=== PATIENT | female | born 1950 | race Caucasian/White ===

== ENCOUNTER 2017-07-13 11:51 | Emergency (ER) | payer OTHER ==
[~2017-07-13] VITALS: Ht 160 cm; Wt 70.3 kg
[~2017-07-13 11:51] MED LIST: ABAC300; ALBU90OI INH; ALBU90OI6 INH; AMLO5 PO; ASPI81CH PO; ATOR10; BUDE10.22 IH; BUDE6HFA; CARV25 PO; CARV3.125 PO; CETI10; CODACE30 PO; CODGUAEL PO; CYCL10 PO; DEXT30SU PO; DOC250 PO; FAMO20 PO; FAMO40 PO; FENO145 PO; FENOFIBRATE145 MG PO; Fludrocortison0.1 MG PO; HYDACE5325 PO; Hydrocortisone5 MG PO; IBUP800 PO; Iron Supplemen325 MG PO; LOSARTAN POTASS50 MG PO; MONT10T; MONT10T PO; NIAC500ER PO; Neurontin 100100 MG GT; OLME20 PO; OMEP20ER PO; PRED20 PO; PROACE100 PO; Prilosec20 MG PO; RXCODACET PO; TRAM50 PO; [UNRECOGNIZED DRUG - OTHER]
[2017-07-13 13:21] LABS: Alanine Aminotransfer (ALT/SGP 16 U/L (12-78); Albumin, Blood 3.3 g/dL (3.4-5.0); Albumin/Globulin Ratio 0.9 (0.8-1.8); Alk Phos 51 U/L (50-136); Anion Gap 10 mmol/L (6-16); Aspartate Aminotrans (AST/SGOT 28 U/L (12-37); Bilirubin, Total 0.4 mg/dL (0.1-1.0); Blood Urea Nitrogen 10 mg/dL (8-24); Bun/Creatinine Ratio 10.9 (12.0-20.0); CO2, Blood 20 mmol/L (21-32); Calcium, Blood 8.1 mg/dL (8.5-10.1); Chloride, Blood 97 mmol/L (98-108); Creatinine, Blood 0.92 mg/dL (0.40-1.00); Globulin, Blood 3.5 g/dL (2.2-4.0); Glomerular Filtration Rate >60 (60-); Glucose, Blood 95 mg/dL (70-99); Potassium, Blood 4.8 mmol/L (3.5-5.5); Sodium, Blood 127 mmol/L (136-145); Total Protein, Blood 6.8 g/dL (6.4-8.2); Troponin I <0.015 ng/mL (0.000-0.040)
[2017-07-13 13:22] LABS: BASOPHILS ABSOLUTE AUTO 0.03 K/mm3 (0.00-0.23); BASOPHILS PERCENT AUTO 0 % (0-2); EOSINOPHILS ABSOLUTE AUTO 0.18 K/mm3 (0.00-0.68); EOSINOPHILS PERCENT AUTO 2 % (0-6); Hematocrit 29.6 % (33.0-51.0); IMMATURE GRAN ABSOLUTE AUTO 0.05 K/mm3 (0.00-0.10); IMMATURE GRAN PERCENT AUTO 0 % (0-1); LYMPHOCYTES ABSOLUTE AUTO 1.74 K/mm3 (0.84-5.20); LYMPHOCYTES PERCENT AUTO 16 % (21-46); MONOCYTES ABSOLUTE AUTO 0.93 K/mm3 (0.16-1.47); MONOCYTES PERCENT AUTO 8 % (4-13); Mean Corpuscular HGB 31.7 pg (26.0-34.0); Mean Corpuscular HGB Conc 33.8 g/dL (31.5-36.5); Mean Corpuscular Volume 94 fL (80-100); NEUTROPHILS ABSOLUTE AUTO 8.26 K/mm3 (1.96-9.15); NEUTROPHILS PERCENT AUTO 74 % (41-73); RDW Coefficient Variation 12.8 % (11.7-14.2); RDW Standard Deviation 43.9 fL (35.1-46.3); Red Blood Cell Count 3.15 M/mm3 (3.80-5.20); White Blood Cell Count 11.19 K/mm3 (4.00-11.30)
[2017-07-13 13:25] LABS: Mean Platelet Volume 9.6 fL (9.1-12.4); Platelet Count 353 K/mm3 (150-400)
[2017-07-13 13:49] LABS: Uric Acid, Blood 2.7 mg/dL (2.6-6.0)
[2017-07-13 14:49] LABS: Source, Urine Clean Catch
[2017-07-13 14:53] LABS: Appearance, Urine Clear (Clear); Bilirubin, Urine Neg (Neg); Blood, Urine Neg (Neg); Color, Urine Yellow (P-Yellow); Glucose Qualitative, Urine Neg (Neg); Ketones, Urine Neg (Neg); Leukocyte Esterase, Urine Neg (Neg); Nitrite, Urine Neg (Neg); Protein, Urine Neg (Neg); Specific Gravity, Urine 1.005 (1.003-1.022); Urobilinogen, Urine NORM (Normal)
== END 2017-07-13 15:27 | disposition home or self-care (01) ==
LOC: ER 11:51
PROVIDERS: Internal Medicine
DX: E87.1 Hypo-osmolality and hyponatremia (principal); E86.0 Dehydration; R55 Syncope and collapse; J45.909 Unspecified asthma, uncomplicated; I10 Essential (primary) hypertension; F17.200 Nicotine dependence, unspecified, uncomplicated; Z91.013 Allergy to seafood; Z91.030 Bee allergy status; Z88.5 Allergy status to narcotic agent; Z88.2 Allergy status to sulfonamides; Z88.8 Allergy status to other drugs, medicaments and biological substances; Z79.899 Other long term (current) drug therapy; Z79.82 Long term (current) use of aspirin
CPT/HCPCS: 80053; 81003; 83880; 84484; 84550; 85025; 93005; 93010; 99283

== ENCOUNTER → 2018-08-08 | Outpatient (CLI) | payer OTHER | END | disposition home or self-care (01) | LOC: LAB 19:05 → LAB SHORT 19:05 | DX: K52.9 Noninfective gastroenteritis and colitis, unspecified (principal) | CPT/HCPCS: 87015; 87045; 87046; 87077; 87205; 87493; 87899 ==

== ENCOUNTER 2019-03-30 09:36 | Emergency (ER) | payer OTHER ==
[~2019-03-30] VITALS: Ht 154.9 cm; Wt 64.4 kg
[2019-03-30 13:37] LABS: BASOPHILS ABSOLUTE AUTO 0.02 K/mm3 (0.00-0.23); BASOPHILS PERCENT AUTO 0 % (0-2); EOSINOPHILS ABSOLUTE AUTO 0.01 K/mm3 (0.00-0.68); EOSINOPHILS PERCENT AUTO 0 % (0-6); Hemoglobin 11.1 g/dL (11.5-16.0); IMMATURE GRAN ABSOLUTE AUTO 0.06 K/mm3 (0.00-0.10); IMMATURE GRAN PERCENT AUTO 0 % (0-1); LYMPHOCYTES ABSOLUTE AUTO 0.92 K/mm3 (0.84-5.20); LYMPHOCYTES PERCENT AUTO 6 % (21-46); MONOCYTES ABSOLUTE AUTO 1.19 K/mm3 (0.16-1.47); MONOCYTES PERCENT AUTO 8 % (4-13); Mean Corpuscular HGB 31.4 pg (26.0-34.0); Mean Corpuscular HGB Conc 33.6 g/dL (31.5-36.5); Mean Corpuscular Volume 93 fL (80-100); Mean Platelet Volume 9.1 fL (9.1-12.4); NEUTROPHILS ABSOLUTE AUTO 13.15 K/mm3 (1.96-9.15); NEUTROPHILS PERCENT AUTO 86 % (41-73); Platelet Count 392 K/mm3 (150-400); RDW Standard Deviation 41.1 fL (35.1-46.3); Red Blood Cell Count 3.54 M/mm3 (3.80-5.20); White Blood Cell Count 15.35 K/mm3 (4.00-11.30)
[2019-03-30 13:54] LABS: Alanine Aminotransfer (ALT/SGP 13 U/L (12-78); Albumin, Blood 3.3 g/dL (3.4-5.0); Albumin/Globulin Ratio 0.9 (0.8-1.8); Alk Phos 77 U/L (50-136); Anion Gap 8 mmol/L (6-16); Aspartate Aminotrans (AST/SGOT 9 U/L (12-37); Bilirubin, Total 0.8 mg/dL (0.1-1.0); Blood Urea Nitrogen 9 mg/dL (8-24); Bun/Creatinine Ratio 13.3 (12.0-20.0); CO2, Blood 23 mmol/L (21-32); Calcium, Blood 8.5 mg/dL (8.5-10.1); Chloride, Blood 96 mmol/L (98-108); Creatinine, Blood 0.68 mg/dL (0.40-1.00); Ethanol (Alcohol), Blood, Med <3 mg/dL; Globulin, Blood 3.7 g/dL (2.2-4.0); Glomerular Filtration Rate >60 (60-); Glucose, Blood 109 mg/dL (70-99); Magnesium, Blood 1.3 mg/dL (1.6-2.4); Potassium, Blood 4.1 mmol/L (3.5-5.5); Sodium, Blood 127 mmol/L (136-145)
[2019-03-30 14:33] LABS: Source, Urine Clean Catch
[2019-03-30 14:36] LABS: Bilirubin, Urine Neg (Neg); Blood, Urine Neg (Neg); Glucose Qualitative, Urine Neg (Neg); Ketones, Urine Neg (Neg); Leukocyte Esterase, Urine Neg (Neg); Nitrite, Urine Neg (Neg); Protein, Urine 3+ (Neg); Specific Gravity, Urine 1.015 (1.003-1.022); Urobilinogen, Urine NORM (Normal)
[2019-03-30 14:45] LABS: Appearance, Urine Hazy (Clear); Color, Urine Yellow (P-Yellow)
[2019-03-30 14:49] LABS: Bacteria Many /hpf; Red Blood Cells, Urine 0-2 /hpf (0-2); Squamous Epithelial Cells Mod /hpf (Few)
[2019-03-30] MEDS ORDERED: Valium5 MG PO (16:25)
[2019-03-30] MEDS ORDERED: Percocet 5-3251 EACH PO (16:25)
[2019-03-30] MEDS ORDERED: CEPH500 PO (16:25)
== END 2019-03-30 16:45 | disposition home or self-care (01) ==
LOC: ER 09:36
PROVIDERS: Emergency Medicine
DX: M62.838 Other muscle spasm (principal); M43.6 Torticollis; Z88.5 Allergy status to narcotic agent; Z91.030 Bee allergy status; Z88.2 Allergy status to sulfonamides; Z79.899 Other long term (current) drug therapy; I10 Essential (primary) hypertension; G47.30 Sleep apnea, unspecified; F17.200 Nicotine dependence, unspecified, uncomplicated; J45.909 Unspecified asthma, uncomplicated
CPT/HCPCS: 36415; 70450; 72125; 80053; 81001; 83735; 85025; 87077; 87086; 87186; 96361; 96374; 96375; 99284-25; C9113; G0480; J1170; J1885; J2060; J2405; J7030

== ENCOUNTER 2023-09-09 09:40 | Observation (INO) | payer OTHER ==
[~2023-09-09] VITALS: Ht 152.4 cm; Wt 52.5 kg
[~2023-09-09 09:40] MED LIST changes: +CEPH500 PO; +Percocet 5-3251 EACH PO; +Valium5 MG PO
[2023-09-09 10:32] LABS: BASOPHILS ABSOLUTE AUTO 0.04 K/mm3 (0.00-0.23); BASOPHILS PERCENT AUTO 0 % (0-2); MONOCYTES PERCENT AUTO 7 % (4-13); Red Blood Cell Count 3.63 M/mm3 (3.80-5.20)
[2023-09-09 10:39] LABS: EOSINOPHILS ABSOLUTE AUTO 0.04 K/mm3 (0.00-0.68); EOSINOPHILS PERCENT AUTO 0 % (0-6); Hemoglobin 12.2 g/dL (11.5-16.0); IMMATURE GRAN ABSOLUTE AUTO 0.06 K/mm3 (0.00-0.10); IMMATURE GRAN PERCENT AUTO 1 % (0-1); LYMPHOCYTES ABSOLUTE AUTO 1.49 K/mm3 (0.84-5.20); LYMPHOCYTES PERCENT AUTO 13 % (21-46); MONOCYTES ABSOLUTE AUTO 0.77 K/mm3 (0.16-1.47); Mean Corpuscular HGB 33.6 pg (26.0-34.0); Mean Corpuscular HGB Conc 35.9 g/dL (31.5-36.5); Mean Corpuscular Volume 94 fL (80-100); NEUTROPHILS ABSOLUTE AUTO 9.48 K/mm3 (1.96-9.15); NEUTROPHILS PERCENT AUTO 80 % (41-73); RDW Coefficient Variation 12.2 % (11.7-14.2); RDW Standard Deviation 42.7 fL (35.1-46.3); White Blood Cell Count 11.88 K/mm3 (4.00-11.30)
[2023-09-09 10:53] LABS: Albumin, Blood 3.8 g/dL (3.4-5.0); Bilirubin, Total 1.1 mg/dL (0.1-1.0); Bun/Creatinine Ratio 15.5 (12.0-20.0); Creatinine, Blood 0.84 mg/dL (0.40-1.00); Globulin, Blood 3.8 g/dL (2.2-4.0); Total Protein, Blood 7.6 g/dL (6.4-8.2)
[2023-09-09] MEDS ORDERED: Ondansetron HCl 2 MG / ML 2ML Vial IV ONE (11:00)
[2023-09-09] MEDS ORDERED: NS 1,000 ML IV SCH ×2 (11:00→14:00)
[2023-09-09 11:13] LABS: Platelet Count 396 K/mm3 (150-400)
[2023-09-09] MEDS ORDERED: Ondansetron HCl 2 MG / ML 2ML Vial IV PRN (13:55)
[2023-09-09] MEDS ORDERED: LOSA50 PO (16:35)
[2023-09-09 16:57] VITALS: BP 166/80
[2023-09-09] MEDS ORDERED: Enalaprilat 1.25 MG/ML 2ML Vial IV PRN (17:35)
[2023-09-09] MEDS ORDERED: FentaNYL Citrate 50 MCG/ML 2 ML Injection IV PRN (17:35)
[2023-09-09] MEDS ORDERED: Albuterol HFA200 ACT/6.7 GM INH INH PRN (17:55)
--- NOTE | 2023-09-09 18:45 | NUR ---
ADMIT: PT ADMITTED TO MEDICAL FLOOR THIS SHIFT. PT BROUGHT UP TO ROOM BY [facility]UI[facility] BUT ABLE TO TRANSFER TO BED c STANDBY ASSIST. LUNG SOUNDS CLEAR. PT TO BE NPO AFTER MIDNIGHT FOR POSSIBLE EGD TOMORROW. DR. LONGO CONSULTED BY ED. PT EATING ICE CHIPS W/O COMPLICATIONS. TELE ORDERED. CALLS APPROPRIATELY. A/0 X4. PLEASANT AND COOPERATIVE. NO SKIN ISSUES NOTED BESIDES ABD SCARS AND R. HIP SCAR. CALL LIGHT IN REACH. BED IN LOWEST POSITION.
[2023-09-09 20:37] VITALS: BP 164/91
[2023-09-09] MEDS ORDERED: Pantoprazole Sodium 40 MG Injection IV SCH (21:00)
--- NOTE | 2023-09-10 04:56 | NUR ---
[employer] PATIENT IS A&OX4, ON ROOM AIR, BP ARE ELEVATED. WEAK BUT INDEPENDENT IN ROOM, CALLS APPROPRIATELY. COMPLAINED OF BACK PAIN THOUGHOUT THE NIGHT, PRN PAIN MEDS GIVEN, PATIENT WAS ABLE TO WALK IN CHILD INDEPENDENTLY. PLAN FOR EGD DURING DAY SHIFT.
[2023-09-10 05:06] LABS: BASOPHILS ABSOLUTE AUTO 0.03 K/mm3 (0.00-0.23); BASOPHILS PERCENT AUTO 0 % (0-2); EOSINOPHILS ABSOLUTE AUTO 0.07 K/mm3 (0.00-0.68); EOSINOPHILS PERCENT AUTO 1 % (0-6); Hematocrit 28.8 % (33.0-51.0); Hemoglobin 10.1 g/dL (11.5-16.0); IMMATURE GRAN ABSOLUTE AUTO 0.04 K/mm3 (0.00-0.10); IMMATURE GRAN PERCENT AUTO 1 % (0-1); LYMPHOCYTES ABSOLUTE AUTO 1.47 K/mm3 (0.84-5.20); LYMPHOCYTES PERCENT AUTO 17 % (21-46); MONOCYTES ABSOLUTE AUTO 0.97 K/mm3 (0.16-1.47); MONOCYTES PERCENT AUTO 11 % (4-13); Mean Corpuscular HGB 33.3 pg (26.0-34.0); Mean Corpuscular HGB Conc 35.1 g/dL (31.5-36.5); Mean Corpuscular Volume 95 fL (80-100); Mean Platelet Volume 9.2 fL (9.1-12.4); NEUTROPHILS ABSOLUTE AUTO 6.27 K/mm3 (1.96-9.15); NEUTROPHILS PERCENT AUTO 71 % (41-73); Platelet Count 283 K/mm3 (150-400); RDW Coefficient Variation 12.3 % (11.7-14.2); RDW Standard Deviation 42.8 fL (35.1-46.3); Red Blood Cell Count 3.03 M/mm3 (3.80-5.20); White Blood Cell Count 8.85 K/mm3 (4.00-11.30)
[2023-09-10 05:48] VITALS: BP 163/84
[2023-09-10 05:55] LABS: Bun/Creatinine Ratio 12.4 (12.0-20.0); Creatinine, Blood 0.73 mg/dL (0.40-1.00); Potassium, Blood 3.5 mmol/L (3.5-5.5)
[2023-09-10 07:50] VITALS: BP 158/79
[2023-09-10] MEDS ORDERED: Enoxaparin 40 MG/0.4 ML SYR SC SCH (09:00)
[2023-09-10] MEDS ORDERED: Lactated Ringer's 1,000 ML IV SCH (12:50)
[2023-09-10] MEDS ORDERED: propofoL 50 ML IV ONE (13:00)
[2023-09-10] MEDS ORDERED: Lidocaine HCl 2% 10 ML SDA ONE (13:02)
--- NOTE | 2023-09-10 13:24 | NUR ---
PT HERE VIA [facility] FOR EGD. History, Chart, Medications and Allergies reviewed before start of procedure.Pre-Op teaching done. Pt verbalizes understanding. Patient confirms NPO status and agrees with scheduled surgery.
[2023-09-10 13:25] VITALS: BP 169/97
--- NOTE | 2023-09-10 14:48 | NUR ---
09/10/23 1448 Daija Obregon MONITOR INTACT WITH CONTINUOUS PULSE OXIMETRY, CONTINUOUS END TITAL CO2, AND INTERMITTENT BLOOD PRESSURE.
[2023-09-10 14:56] VITALS: BP 134/72
[2023-09-10 15:24] VITALS: BP 171/85
[2023-09-10] MEDS ORDERED: OMEP20ER PO (16:23)
[2023-09-10] MEDS ORDERED: Omeprazole 20 MG CapCR PO SCH (16:30)
--- NOTE | 2023-09-10 17:19 | NUR ---
PT D/C @0076 INDEPENDENTLY WITH AND DAUGHTER. MEDICATIONS FAXED TO [facility]. TELE SENT BACK. EGD COMPLETED. DR. LONGO OFFICE TO CALL FOR FOLLOW-UP APPOINTMENT. PT TO CALL DR. PATEL FOR FOLLOW-UP APT. EGD PICTURES SENT WITH PT. PT INSTRUCTED TO TAKE PRILOSEX BID NOT NEEDED. NO QUESTIONS AT TIME OF D/C
== END 2023-09-10 17:16 | disposition home or self-care (01) ==
LOC: ER 09:40 → MEDS 09:41 → ERHOLD 09:41 → MEDS 16:43
PROVIDERS: Internal Medicine Gastroenterology; Physician Assistant; ADMIT Internal Medicine
PROC: 0DB68ZX Excision of Stomach, Via Natural or Artificial Opening Endoscopic, Diagnostic (ICD-10-PCS; principal; 2023-09-10 15:00)
DX: K29.70 Gastritis, unspecified, without bleeding (principal); K22.10 Ulcer of esophagus without bleeding; K44.9 Diaphragmatic hernia without obstruction or gangrene; J44.9 Chronic obstructive pulmonary disease, unspecified; G47.33 Obstructive sleep apnea (adult) (pediatric); K21.9 Gastro-esophageal reflux disease without esophagitis; I10 Essential (primary) hypertension; E78.00 Pure hypercholesterolemia, unspecified; M81.0 Age-related osteoporosis without current pathological fracture; F17.210 Nicotine dependence, cigarettes, uncomplicated; Z79.899 Other long term (current) drug therapy; Z88.2 Allergy status to sulfonamides; Z88.5 Allergy status to narcotic agent; Z88.8 Allergy status to other drugs, medicaments and biological substances; Z99.89 Dependence on other enabling machines and devices; Z91.030 Bee allergy status
CPT/HCPCS: 36415; 71046; 74177; 80048; 80053; 83690; 84484; 85025; 88305; 88342; 93005; 93010; 94660; 94762; 96361; 96374-59; 96375; 96376; 99285-25; C9113; G0378; J2001; J2405; J2704; J3010; J7030; J7120; Q9967

== ENCOUNTER 2023-12-19 12:00 | Day surgery (SDC) | payer OTHER ==
[~2023-12-19] VITALS: Ht 152.4 cm; Wt 50.2 kg
[~2023-12-19 12:00] MED LIST changes: +CARV3.125; +DIAZ5 PO; +IBUP600 PO; +LOSA50 PO; +Lactated Ringer's 1,000 ML IV ONE
[2023-12-19] MEDS ORDERED: ALENDRONATE SOD70 MG (12:54)
[2023-12-19] MEDS ORDERED: MULVITA (12:54)
[2023-12-19] MEDS ORDERED: AMOX500 (12:54)
[2023-12-19] MEDS ORDERED: Lactated Ringer's 1,000 ML IV ONE (13:18)
[2023-12-19] MEDS ORDERED: propofoL 40 ML IV ONE (13:18)
[2023-12-19 15:12] VITALS: BP 141/91
== END 2023-12-19 14:05 | disposition home or self-care (01) ==
LOC: ORSCSDS 12:00
PROVIDERS: Internal Medicine Gastroenterology
PROC: 0DJ08ZZ Inspection of Upper Intestinal Tract, Via Natural or Artificial Opening Endoscopic (ICD-10-PCS; principal; 2023-12-19 13:30)
DX: R13.10 Dysphagia, unspecified (principal); Z87.11 Personal history of peptic ulcer disease; D64.9 Anemia, unspecified; G47.33 Obstructive sleep apnea (adult) (pediatric); F41.9 Anxiety disorder, unspecified; Z79.899 Other long term (current) drug therapy
CPT/HCPCS: J2704; J7120